=== PATIENT | male | born 1955 | race Caucasian/White ===

== ENCOUNTER 2016-09-27 15:32 | Outpatient (CLI) | payer OTHER | END 2016-09-27 15:33 | disposition home or self-care (01) | LOC: DI 15:32 | PROVIDERS: ATTEND Physician Assistant | DX: Z53.9 Procedure and treatment not carried out, unspecified reason (principal) ==

== ENCOUNTER 2017-11-30 12:58 | Outpatient (CLI) | payer OTHER | END 2017-11-30 12:59 | disposition critical access hospital (66) | LOC: EMS 12:58 | PROVIDERS: ATTEND Surgery | DX: M54.2 Cervicalgia (principal); R07.1 Chest pain on breathing; W17.89XA Other fall from one level to another, initial encounter; W20.8XXA Other cause of strike by thrown, projected or falling object, initial encounter; Y92.009 Unspecified place in unspecified non-institutional (private) residence as the place of occurrence of the external cause | CPT/HCPCS: A0425; A0427 ==

== ENCOUNTER 2017-11-30 13:11 | Emergency (ER) | payer OTHER ==
[2017-11-30] MEDS ORDERED: SODIUM CHLORIDE 0.9% 1,000 ML IV ONE (13:18)
[2017-11-30] MEDS ORDERED: fentaNYL 100 MCG/2 ML VIAL IVP STA ×2 (13:18→17:17)
--- NOTE | 2017-11-30 13:22 | ED Physician Documentation ---
PD HPI MAJOR TRAUMA - Stated complaint Stated Complaint: CRUSHING INJURY - Chief complaint Chief Complaint: Trauma Ch/Bk - History obtained from History obtained from: Patient, EMS - History of Present Illness Mechanism of injury: Fell (62-year-old gentleman with no medical history was up on him 1 of the big hay lance and fell off and then another hay bale fell on his chest he complains of severe sternal pain. He did have a syncopal episode with the paramedics, but that was during IV placement, but they said he was not bradycardic or hypotensive during that episode or at any time. He did not lose consciousness during the trauma. He denies injuries other than the chest wall. He has been hypoxic on the way in, 89% on a nonrebreather which is resolved here.) Review of Systems Ten Systems: 10 systems reviewed and negative Constitutional: denies: Fever, Chills Cardiac: reports: Chest pain / pressure. denies: Palpitations Respiratory: reports: Dyspnea. denies: Cough GI: denies: Abdominal Pain PD PAST MEDICAL HISTORY - Past Medical History Past Medical History: No - Present Medications Home Medications: Ambulatory Orders Medication Instructions Recorded Confirmed Aspirin 81 mg PO DAILY 11/30/17 11/30/17 Atorvastatin Calcium 40 mg PO DAILY 11/30/17 11/30/17 Glipizide 10 mg PO BID 11/30/17 11/30/17 Metformin HCl [Glucophage Xr] 500 mg PO DAILY 11/30/17 11/30/17 Metoprolol Tartrate 50 mg BID 11/30/17 11/30/17 Niacin (Inositol Niacinate) 500 mg PO DAILY 11/30/17 11/30/17 [Niacin 500 mg Capsule] Oxycodone HCl/Acetaminophen 5 mg PO PRN PRN 11/30/17 11/30/17 [Oxycodone-Acetaminophen 5-325] hydroCHLOROthiazide 25 mg PO DAILY 11/30/17 11/30/17 [Hydrochlorothiazide] - Allergies Allergies/Adverse Reactions: Allergies Allergy/AdvReac Type Severity Reaction Status Date / Time No Known Drug Allergies Allergy Verified 11/30/17 13:16 - Social History Does the pt smoke?: No Does the pt drink ETOH?: No - Family History Family history: reports: Non contributory PD ED PE NORMAL - Vitals Vital signs reviewed: Yes - General General: Alert and oriented X 3, Other (He is in a lot of pain anytime his arms are moved or the chest wall is palpated.) - HEENT HEENT: PERRL, EOMI - Neck Neck: No bony TTP, Other (Maintained in a c-collar pending imaging given distracting injury.) - Cardiac Cardiac: RRR, No murmur - Respiratory Respiratory: No respiratory distress, Clear bilaterally - Abdomen Abdomen: Soft, Non tender - Back Back: No CVA TTP, No spinal TTP - Extremities Extremities: No edema, No calf tenderness / cord - Neuro Neuro: Alert and oriented X 3, Normal speech Eye Opening: Spontaneous Motor: Obeys Commands Verbal: Oriented GCS Score: 15 - Psych Psych: Normal mood, Normal affect Results - Vitals Vitals: Vital Signs - 24 hr 11/30/17 11/30/17 11/30/17 13:11 13:30 14:08 Temperature 36.5 C Heart Rate 60 54 L 58 L Respiratory 15 15 13 Rate Blood Pressure 164/97 H 154/89 H 145/78 H O2 Saturation 100 100 100 11/30/17 15:36 Temperature Heart Rate 54 L Respiratory 15 Rate Blood Pressure 145/82 H O2 Saturation 95 Oxygen O2 Source Room air Oxygen Flow Rate 2 - EKG (time done) 1350 Rate: Rate (enter#) (61) Rhythm: NSR [place]: Normal Intervals: Normal MO QRS: Normal Ischemia: Non specific changes Computer interpretation: Agree with computer - Labs Labs: Laboratory Tests 11/30/17 11/30/17 11/30/17 13:22 13:22 13:22 WBC 9.3 RBC 4.77 Hgb 14.1 Hct 41.4 L MCV 86.8 MCH 29.5 MCHC 34.0 RDW 13.4 Plt Count 182 MPV 9.1 Neut # (Auto) 5.0 Lymph # (Auto) 2.6 [place] # (Auto) 0.9 Eos # (Auto) 0.7 Baso # (Auto) 0.1 Absolute Nucleated RBC 0.00 Nucleated RBC % 0.0 PT 11.8 INR 1.0 Sodium 139 Potassium 4.1 Chloride 106 Carbon Dioxide 26 Anion Gap 7.0 BUN 18 Creatinine 0.9 Estimated GFR (MDRD) 86 L Glucose 172 H Calcium 9.7 Total Bilirubin 0.4 AST 39 ALT 49 Alkaline Phosphatase 54 Troponin I Total Protein 6.8 Albumin 4.3 Globulin 2.5 Albumin/Globulin Ratio 1.7 Lipase 34 Ethyl Alcohol < 5.0 11/30/17 13:22 WBC RBC Hgb Hct MCV MCH MCHC RDW Plt Count MPV Neut # (Auto) Lymph # (Auto) [place] # (Auto) Eos # (Auto) Baso # (Auto) Absolute Nucleated RBC Nucleated RBC % PT INR Sodium Potassium Chloride Carbon Dioxide Anion Gap BUN Creatinine Estimated GFR (MDRD) Glucose Calcium Total Bilirubin AST ALT Alkaline Phosphatase Troponin I < 0.04 Total Protein Albumin Globulin Albumin/Globulin Ratio Lipase Ethyl Alcohol - Rads (name of study) 1v chest/1v pelvis Radiology: EMP read contemporaneously (normal) Ct "PanScan" Radiology: EMP read contemporaneously PD MEDICAL DECISION MAKING - ED course ED course: 62-year-old gentleman brought in as a major trauma after fall from height and then chest wall injury. Found to have 4 rib fractures on the right, one on the left, small hemopneumothorax. I spoke with Dr. Gilbert Harris, the on-call surgeon here who recommended transfer to a trauma center for further evaluation and treatment, that was at 2:18 PM. [facility] was called for transfer to 2: 23pm. There was a significant delay to them calling me back because of their volume. Accepted to [facility] ED by Dr. Cook at 3:45 PM, cobras were completed. Then there was a second delay to transport because of the local EMS service did not have any available rigs for the transport [facility] was dispatched from the [facility]. - Sepsis Event Vital Signs: Vital Signs - 24 hr 11/30/17 11/30/17 11/30/17 13:11 13:30 14:08 Temperature 36.5 C Heart Rate 60 54 L 58 L Respiratory 15 15 13 Rate Blood Pressure 164/97 H 154/89 H 145/78 H O2 Saturation 100 100 100 11/30/17 15:36 Temperature Heart Rate 54 L Respiratory 15 Rate Blood Pressure 145/82 H O2 Saturation 95 Oxygen O2 Source Room air Oxygen Flow Rate 2 Departure - Departure Disposition: 02 Transfer Acute Care Hosp Clinical Impression: Fracture of rib, Traumatic pneumohemothorax Condition: Serious
[2017-11-30 13:29] LABS: BASOPHILS # (AUTO) 0.1 10^3/uL (0.0-0.1); BASOPHILS % (AUTO) 0.9 %; EOSINOPHILS # (AUTO) 0.7 10^3/uL (0.0-0.7); HGB - HEMOGLOBIN 14.1 g/dL (14.0-18.0); LYMPHOCYTES # (AUTO) 2.6 10^3/uL (1.5-3.5); LYMPHOCYTES % (AUTO) 28.1 %; MEAN CORPUSCULAR HEMOGLOBIN 29.5 pg (27.0-31.0); MEAN CORPUSCULAR VOLUME 86.8 fL (80.0-94.0); MEAN PLATELET VOLUME 9.1 fL (7.4-11.4); MONOCYTES # (AUTO) 0.9 10^3/uL (0.0-1.0); MONOCYTES % (AUTO) 9.9 %; NEUTROPHILS % (AUTO) 54.1 %; PLT - PLATELET COUNT 182 10^3/uL (130-450); RED BLOOD COUNT 4.77 10^6/uL (4.70-6.10); RED CELL DISTRIBUTION WIDTH 13.4 % (12.0-15.0); WHITE BLOOD COUNT 9.3 x10^3/uL (4.8-10.8)
[2017-11-30] MEDS ORDERED: IOPAMIDOL-300 100 ML VIAL ONE (13:34)
[2017-11-30 13:35] LABS: PT - PROTHROMBIN TIME 11.8 secs (9.9-12.6)
[2017-11-30 13:41] LABS: ALBUMIN 4.3 g/dL (3.2-5.5); ALBUMIN/GLOBULIN RATIO 1.7 (1.0-2.2); ALKALINE PHOSPHATASE 54 IU/L (42-121); ALT ALANINE AMINOTRANSFERASE 49 IU/L (10-60); AST ASPARTATE AMINOTRANSFERASE 39 IU/L (10-42); BILIRUBIN,TOTAL 0.4 mg/dL (0.2-1.0); BUN - BLOOD UREA NITROGEN 18 mg/dL (6-20); CALCIUM 9.7 mg/dL (8.5-10.3); CARBON DIOXIDE - CO2 26 mmol/L (21-32); CHLORIDE 106 mmol/L (101-111); CREATININE 0.9 mg/dL (0.6-1.2); GFR - MDRD 86 (>89); GLUCOSE 172 mg/dL (70-100); LIPASE 34 U/L (22-51); SODIUM 139 mmol/L (135-145); TOTAL PROTEIN 6.8 g/dL (6.7-8.2)
--- NOTE | 2017-11-30 13:47 | XRAY Report ---
Procedure Date: 11/30/2017 Accession Number: [id number] / [id number] Procedure: XR - Pelvis 1 View CPT Code: FULL RESULT: EXAM: PELVIS RADIOGRAPHY EXAM DATE: 11/30/2017 01:23 PM. CLINICAL HISTORY: Trauma. COMPARISON: None. TECHNIQUE: 1 view. FINDINGS: Bones: Normal. No fracture or bone lesion. Joints: The visualized hip, pubis symphysis, and sacroiliac joints are preserved. No subluxation. Soft Tissues: Normal. No soft tissue swelling. IMPRESSION: Normal pelvis radiography. [facility]
--- NOTE | 2017-11-30 13:48 | XRAY Report ---
Procedure Date: 11/30/2017 Accession Number: [id number] / [id number] Procedure: XR - Chest 1 View X-Ray CPT Code: 99106 FULL RESULT: EXAM: CHEST RADIOGRAPHY EXAM DATE: 11/30/2017 01:23 PM. CLINICAL HISTORY: Chest pain post trauma. COMPARISON: None. TECHNIQUE: 1 view. FINDINGS: Lungs/Pleura: No focal opacities evident. No pleural effusion. No pneumothorax. Mediastinum: Within exam limitations, the cardiomediastinal contour is normal. Other: None. IMPRESSION: Normal single view chest. [facility]IA
[2017-11-30] MEDS ORDERED: IOPAMIDOL-300 100 ML VIAL IVP ONE (13:57)
--- NOTE | 2017-11-30 14:23 | CT Report ---
Procedure Date: 11/30/2017 Accession Number: [id number] / [id number] Procedure: CT - Chest W/ CPT Code: FULL RESULT: EXAM: CT CHEST EXAM DATE: 11/30/2017 01:47 PM. CLINICAL HISTORY: Chest pain post fall. COMPARISONS: None. TECHNIQUE: Routine helical CT imaging was performed through the chest. IV contrast: 100 cc of Isovue-300. Reconstructions: Coronal and sagittal. In accordance with CT protocol optimization, one or more of the following dose reduction techniques were utilized for this exam: automated exposure control, adjustment of mA and/or KV based on patient size, or use of iterative reconstructive technique. FINDINGS: Lungs/Pleura: There is trace pneumothorax noted at the superior lateral aspect of the right lung adjacent to rib fractures. An additional smaller pneumothorax is seen at the anterior medial right costophrenic angle. Bibasilar atelectatic changes otherwise seen. Central airways are grossly unremarkable. Mediastinum: Normal. No adenopathy or masses. The heart and great vessels are normal. Bones: There are fractures involving the right third through sixth ribs. An additional fracture is seen at the posterior aspect of the left fifth rib. No significant displacement is seen. Associated soft subpleural contusion/small hematoma present. Visualized Abdomen: Possible hepatic cyst seen in the posterior right hepatic lobe measuring 1.5 cm (image 53 of series 2). There is a probable splenic cyst measuring 2.8 cm at the superior aspect. Other: None. IMPRESSION: 1. Trace pneumothorax at the superior lateral right lung and in addition to the right anterior inferior costophrenic angle. 2. Right third through sixth rib fractures with left fifth posterior fracture also seen. There is likely underlying contusion/small hematoma. Additional atelectatic changes noted. 3. Hepatic and splenic cysts. Critical results for pneumothorax: Above was discussed with Dr. Pierre at time of dictation on 11/30/2017 at 2:17 PM. RAD[facility]
--- NOTE | 2017-11-30 14:25 | CT Report ---
Procedure Date: 11/30/2017 Accession Number: [id number] / [id number] Procedure: CT - Head W/O CPT Code: FULL RESULT: EXAM: CT HEAD EXAM DATE: 11/30/2017 01:47 PM. CLINICAL HISTORY: Headache. COMPARISON: None. TECHNIQUE: Multiaxial CT images were obtained from the foramen magnum to the vertex. Reformats: Coronal. IV contrast: None. In accordance with CT protocol optimization, one or more of the following dose reduction techniques were utilized for this exam: automated exposure control, adjustment of mA and/or KV based on patient size, or use of iterative reconstructive technique. FINDINGS: Parenchyma: No intraparenchymal hemorrhage. No evidence of mass, midline shift, or CT findings of infarction. Dalton-white differentiation is distinct. Mild periventricular hypoattenuation seen. Extraaxial Spaces: Mild atrophy present. No subdural or epidural collections identified. Ventricles: Normal in size and position. Sinuses and Orbits: Imaged paranasal sinuses, orbits, and mastoids show no significant abnormality. Bones: No evidence of fracture or calvarial defect. Other: None. IMPRESSION: Mild senescent changes without CT evidence of acute intracranial disease. RADIA
--- NOTE | 2017-11-30 14:27 | CT Report ---
Procedure Date: 11/30/2017 Accession Number: [id number] / [id number] Procedure: CT - Cervical Spine W/O CPT Code: FULL RESULT: EXAM: CT CERVICAL SPINE WITHOUT CONTRAST DATE: 11/30/2017 01:47 PM. HISTORY: Neck pain post fall. COMPARISONS: None. TECHNIQUE: Thin-section axial images were acquired of the cervical spine without contrast. Post-processing: Coronal and sagittal reformats. Other: None. In accordance with CT protocol optimization, one or more of the following dose reduction techniques were utilized for this exam: automated exposure control, adjustment of mA and/or KV based on patient size, or use of iterative reconstructive technique. FINDINGS: Alignment: No scoliosis or spondylolisthesis. Bones: No fracture or bone lesion. Interspace Levels/Facets: Mild multilevel osteoarthritic changes seen. Musculature: Normal. No fatty atrophy. Other: The paravertebral and prevertebral soft tissues are unremarkable. The lung apices are clear. IMPRESSION: Mild multilevel osteoarthritic changes without acute fracture. RADIA
--- NOTE | 2017-11-30 14:31 | CT Report ---
Procedure Date: 11/30/2017 Accession Number: [id number] / [id number] Procedure: CT - Abdomen/Pelvis W/ CPT Code: FULL RESULT: EXAM: CT ABDOMEN AND PELVIS EXAM DATE: 11/30/2017 01:47 PM. CLINICAL HISTORY: Fall from height, chest inj, IV only,. COMPARISONS: Same day CT chest. TECHNIQUE: Routine helical CT imaging was performed through the abdomen and pelvis. IV contrast: 100 mL Isovue-300. Enteric contrast: No. Reconstructions: Coronal and sagittal. In accordance with CT protocol optimization, one or more of the following dose reduction techniques were utilized for this exam: automated exposure control, adjustment of mA and/or KV based on patient size, or use of iterative reconstructive technique. FINDINGS: Lung Bases: See separately dictated CT. Liver: No laceration identified. There are several small hypoattenuating right liver lesions measuring up to 1.5 cm. Gallbladder/Bile Ducts: Unremarkable. Spleen: 2.5 cm cystic lesion in the superior spleen. No laceration identified. Pancreas: Unremarkable. Adrenal Glands: Normal. Kidneys: Homogeneous and symmetric enhancement. No hydronephrosis. Peritoneal Cavity/Bowel: Normal caliber bowel. No hemoperitoneum. No free fluid, free air or adenopathy. Pelvic Organs: Urinary bladder and prostate gland are unremarkable. Vasculature: Mild atherosclerosis. Bones: Partially visualized right fifth and sixth rib fractures. See separately dictated CT. No additional fracture evident. Other: None. IMPRESSION: 1. No evidence of traumatic injury in the abdomen/pelvis. 2. See separately dictated CT for findings in the chest. 3. Nonspecific hypoattenuating splenic lesion could represent a cyst or hemangioma. [facility]
[2017-11-30] MEDS ORDERED: MECLIZINE 12.5 MG TABLET PO STA (15:00)
[2017-11-30] MEDS ORDERED: ONDANSETRON 4 MG/2 ML VIAL IVP STA (16:23)
[2017-11-30 17:35] VITALS: BP 144/75
== END 2017-11-30 17:57 | disposition short-term general hospital (02) ==
LOC: EDUNIT# → ED 13:11
DX: S27.2XXA Traumatic hemopneumothorax, initial encounter (principal); S22.43XA Multiple fractures of ribs, bilateral, initial encounter for closed fracture; W20.8XXA Other cause of strike by thrown, projected or falling object, initial encounter; W17.89XA Other fall from one level to another, initial encounter; Z79.82 Long term (current) use of aspirin
CPT/HCPCS: 36415; 70450; 71045; 71260; 72125; 72170; 74177; 80053; 80320; 83690; 84484; 85025; 85610; 93005; 96361; 96374; 96375; 96376; 99285; A9270; Q9967